=== PATIENT | female | born 1990 | race Caucasian/White ===

== ENCOUNTER 2016-12-10 20:06 | Observation (INO) | payer BC, OTHER ==
[~2016-12-10] VITALS: Ht 157.5 cm; Wt 46.9 kg
[~2016-12-10 20:06] MED LIST: AMIT10TA PO; CARV6.25 PO; CLON0.5T3 PO; CYCL5TAB PO; DIVA500T2 PO; IBUP800T19 PO; MAGN250T10 PO; PROM50TA4 PO; SERT100T PO; TIZA4TAB8 PO; TRAM50TA PO; ZONI100C PO
[2016-12-10] MEDS ORDERED: IV NORMAL SALINE 1,000ML 1,000 ML IV SCH (20:30)
[2016-12-10 20:42] LABS: BASO % 0 % (0-3); EOS % 1 % (0-3); HEMATOCRIT 44.4 % (36.0-47.0); HEMOGLOBIN 14.8 g/dL (12.0-15.5); LYMPH # 2.2 x10^3/uL (1.0-4.8); LYMPH % 41 % (24-48); MEAN CORPUSCULAR HEMOGLOBIN 29 pg (25-35); MEAN CORPUSCULAR HGB CONC 33 g/dL (31-37); MEAN CORPUSCULAR VOLUME 88 fL (79-100); MONO # 0.2 x10^3/uL (0.0-1.1); MONO % 4 % (0-9); NEUT # 2.9 x10^3uL (1.8-7.7); NEUT % 54 % (31-73); PLATELET COUNT 186 x10^3/uL (140-400); RED BLOOD COUNT 5.07 x10^6/uL (3.50-5.40); RED CELL DISTRIBUTION WIDTH 13.7 % (11.5-14.5); WHITE BLOOD COUNT 5.4 x10^3/uL (4.0-11.0)
[2016-12-10 20:49] LABS: ACETAMIN < 2.0 mcg/mL (10-30); ETHANOL < 10 mg/dL (0-10); SALIC 1.1 mg/dL (2.8-20.0)
[2016-12-10 20:50] LABS: ALBUMIN 4.5 g/dL (3.4-5.0); CALCIUM 8.8 mg/dL (8.5-10.1); DIRECT BILIRUBIN 0.1 mg/dL (0.0-0.2); GFR 66.5; MAGNESIUM 2.2 mg/dL (1.8-2.4); POTASSIUM 3.3 mmol/L (3.5-5.1); TOTAL BILIRUBIN 0.1 mg/dL (0.2-1.0); TOTAL PROTEIN 7.7 g/dL (6.4-8.2)
[2016-12-10 21:42] LABS: BILIRUBIN,URINE NEG (NEG); CLARITY,URINE CLEAR; COLOR,URINE STRAW; GLUCOSE,URINE NEG (NEG)
[2016-12-10 21:43] LABS: NITRITE,URINE NEG (NEG); UROBILINOGEN,URINE 0.2 mg/dL (0.2 mg/dL)
--- NOTE | 2016-12-10 21:44 | PHYS DOC ---
Past History Past Medical History: Depression Past Surgical History: No Surgical History Smoking: Non-smoker Alcohol Use: None Drug Use: None Adult General Chief Complaint Chief Complaint: OVERDOSE [facility] HPI Patient is a 26 year old female who presents with reported overdose. Patient was brought to the emergency department by her after he discovered that the patient had intentionally taken medication to hurt herself. The did not see her take the medication, however he states that she told him approximately 1 hour prior to arrival that she took about a third of a bottle of diphenhydramine that contains 600 capsules. He stated that approximately one third of the bottle was missing capsules, therefore they estimated that she may have taken 200 capsules total. The patient has been altered per the and has been lethargic and not responding appropriately to questions which she states is a change from her baseline. The patient does have history of depression and has had multiple episodes of suicidal ideation and suicide attempt in the past. She was recently admitted to inpatient psychiatric treatment 2-3 weeks ago at another facility. The patient is a poor historian currently. The patient denies any pain at this time. The patient does admit that she took medication to try to harm herself. Patient has had no vomiting, fevers, or other reported symptoms. Review of Systems Review of Systems Constitutional: Denies fever or chills [] Eyes: Denies change in visual acuity, redness, or eye pain [] HENT: Denies nasal congestion or sore throat [] Respiratory: Denies cough or shortness of breath [] Cardiovascular: No additional information not addressed in HPI [] GI: Denies abdominal pain, nausea, vomiting, bloody stools or diarrhea [] : Denies dysuria or hematuria [] Musculoskeletal: Denies back pain or joint pain [] Integument: Denies rash or skin lesions [] Neurologic: Denies headache, focal weakness or sensory changes [] Endocrine: Denies polyuria or polydipsia [] Current Medications Current Medications Current Medications Medications (Trade) Dose Ordered Sig/French Start Time Stop Time Status Last Admin Dose Admin Sodium Chloride 1,000 ml @ 1,000 mls/hr Q1H 12/10/16 20:30 12/10/16 21:29 DC 12/10/16 20:30 1,000 MLS/HR Allergies Allergies Allergies Coded Allergies Type Severity Reaction Last Updated Verified codeine Allergy Severe sob 02/13/15 Yes morphine Allergy Severe sob 02/13/15 Yes prochlorperazine Allergy Severe lock jaw 02/13/15 Yes diphenhydramine Allergy Intermediate jittery 02/13/15 Yes Physical Exam Physical Exam Constitutional: Well developed, well nourished, afebrile, staring away. [] HENT: Normocephalic, atraumatic, bilateral external ears normal, oropharynx moist, no oral exudates, nose normal. [] Eyes: PERRLA, EOMI, conjunctiva normal, no discharge. [] Neck: Normal range of motion, no tenderness, supple, no stridor. [] Cardiovascular: Tachycardia, regular rhythm, no murmur [] Lungs & Thorax: Bilateral breath sounds clear to auscultation [] Abdomen: Bowel sounds normal, soft, no tenderness, no masses, no pulsatile masses. [] Skin: Warm, dry, no erythema, no rash. [] Back: No tenderness, no CVA tenderness. [] Extremities: No tenderness, no cyanosis, no clubbing, ROM intact, no edema. [] Neurologic: Delayed verbal responses, normal motor function, normal sensory function, no focal deficits noted. [] Psychologic: Affect flat, judgement impaired, mood normal. [] Current Patient Data Vital Signs Vital Signs Date Time Temp Pulse Resp B/P (MAP) Pulse Ox O2 Delivery O2 Flow Rate FiO2 12/10/16 21:32 105 18 100 12/10/16 20:26 Room Air Lab Results Laboratory Tests Test 12/10/16 20:15 White Blood Count 5.4 x10^3/uL (4.0-11.0) Red Blood Count 5.07 x10^6/uL (3.50-5.40) Hemoglobin 14.8 g/dL (12.0-15.5) Hematocrit 44.4 % (36.0-47.0) Mean Corpuscular Volume 88 fL (79-100) Mean Corpuscular Hemoglobin 29 pg (25-35) Mean Corpuscular Hemoglobin Concent 33 g/dL (31-37) Red Cell Distribution Width 13.7 % (11.5-14.5) Platelet Count 186 x10^3/uL (140-400) Neutrophils (%) (Auto) 54 % (31-73) Lymphocytes (%) (Auto) 41 % (24-48) Monocytes (%) (Auto) 4 % (0-9) Eosinophils (%) (Auto) 1 % (0-3) Basophils (%) (Auto) 0 % (0-3) Neutrophils # (Auto) 2.9 x10^3uL (1.8-7.7) Lymphocytes # (Auto) 2.2 x10^3/uL (1.0-4.8) Monocytes # (Auto) 0.2 x10^3/uL (0.0-1.1) Eosinophils # (Auto) 0.0 x10^3/uL (0.0-0.7) Basophils # (Auto) 0.0 x10^3/uL (0.0-0.2) Sodium Level 142 mmol/L (136-145) Potassium Level 3.3 mmol/L (3.5-5.1) L Chloride Level 103 mmol/L (98-107) Carbon Dioxide Level 31 mmol/L (21-32) Anion Gap 8 (6-14) Blood Urea Nitrogen 6 mg/dL (7-20) L Creatinine 1.0 mg/dL (0.6-1.0) Estimated GFR (Cockcroft-Gault) 66.5 Glucose Level 90 mg/dL (70-99) Calcium Level 8.8 mg/dL (8.5-10.1) Magnesium Level 2.2 mg/dL (1.8-2.4) Total Bilirubin 0.1 mg/dL (0.2-1.0) L Direct Bilirubin 0.1 mg/dL (0.0-0.2) Aspartate Amino Transferase (AST) 17 U/L (15-37) Alanine Aminotransferase (ALT) 19 U/L (14-59) Alkaline Phosphatase 75 U/L (46-116) Total Protein 7.7 g/dL (6.4-8.2) Albumin 4.5 g/dL (3.4-5.0) Salicylates Level 1.1 mg/dL (2.8-20.0) L Salicylate Last Dose Date 12/10/16 Salicylate Last Dose Time 0800 Acetaminophen Level < 2.0 mcg/mL (10-30) L Acetaminophen Last Dose Date 12/10/16 Acetaminophen Last Dose Time 0800 Ethyl Alcohol Level < 10 mg/dL (0-10) EKG EKG Interpreted by me: Heart rate 114, sinus tachycardia, normal intervals, normal axis, no acute ST/T-wave abnormalities present [] Radiology/Procedures Radiology/Procedures Not performed [] Course & Med Decision Making Course & Med Decision Making Pertinent Labs and Imaging studies reviewed. (See chart for details) Poison control was contacted upon arrival to the emergency department. They recommended that the patient be treated with supportive care at this time and had continuous cardiac monitoring ensure no widening of the patient's QRS. EKGs were performed which showed a QRS of 84-86. The patient's lab work is otherwise unremarkable at this time. The patient was medically cleared for psychiatric evaluation. The patient underwent consultation with Dr. Scales through telepsychiatry in the emergency department. After her evaluation, she recommended that the patient be admitted to inpatient psychiatric care as she does not feel that the patient is stable to go home in her current state. This recommendation was confirmed at 0134. Several attempts were made to seek availability of an inpatient psychiatric bed. At time of sign out, patient is pending psychiatric placement. Care patient was signed out to Dr. Langston at 0600. Dragon Disclaimer Dragon Disclaimer This chart was dictated in whole or in part using Voice Recognition software in a busy, high-work load, and often noisy Emergency Department environment. It may contain unintended and wholly unrecognized errors or omissions. Departure Departure: Impression: Primary Impression: Intentional diphenhydramine overdose Additional Impression: Suicidal ideation Referrals: JUVENTINO MANCERA DO (PCP) Problem Qualifiers Primary Impression: Intentional diphenhydramine overdose Encounter type: initial encounter Qualified Codes: T45.0X2A - Poisoning by antiallergic and antiemetic drugs, intentional self-harm, initial encounter RANULFO MCCRACKEN MD Dec 10, 2016 21:44
[2016-12-10 21:53] LABS: BACTERIA,URINE 0 /HPF (0-FEW); RBC,URINE OCC /HPF (0-2); SQUAMOUS EPITHELIAL CELL,UR FEW /LPF; WBC,URINE OCC /HPF (0-4)
[2016-12-10 21:56] LABS: AMPHETAMINE/METHAMPHETAMINE NEG (NEG); BARBITURATES POS (NEG); BENZODIAZEPINES NEG (NEG); CANNABINOIDS NEG (NEG); COCAINE NEG (NEG); METHADONE NEG (NEG); OPIATES NEG (NEG); PHENCYCLIDINE NEG (NEG)
--- NOTE | 2016-12-11 05:30 | EKG ---
[address] [address] Test Date: 2016-12-10 Test Time: 21:01:10 Pat Name: ALBARO ROWELL Department: Room: Gender: F Medical Communication Specialist: : 1990 Requested By: RANULFO MCCRACKEN Order Number: [id number] Reading MD: Marty Rodrigues Measurements Intervals [place] Rate: 114 P: 4 CO: 104 QRS: 59 QRSD: 86 T: 26 QT: 350 QTc: 486 Interpretive Statements SINUS TACHYCARDIA NON-SPECIFIC ST/T CHANGES Electronically Signed On 12-11-2016 8:12:06 CDT by Marty Rodrigues
--- NOTE | 2016-12-11 06:26 | EKG ---
[address] [address] Test Date: 2016-12-10 Test Time: 22:59:30 Pat Name: ALBARO ROWELL Department: Room: Gender: F Ambulance Paramedic: BARBARA : 1990 Requested By: RANULFO MCCRACKEN Order Number: [id number] Reading MD: Marty Rodrigues Measurements Intervals [place] Rate: 100 P: 0 WA: 110 QRS: 56 QRSD: 84 T: 24 QT: 374 QTc: 486 Interpretive Statements SINUS RHYTHM NON SPECIFIC T ABNORMALITY PROLONGED QT NON SPECIFIC ST DEPRESSION Electronically Signed On 12-11-2016 8:12:25 CDT by Marty Rodrigues
[2016-12-11] MEDS ORDERED: ACETAMINOPHEN 325 MG TABLET PO ONE (06:30)
[2016-12-11] MEDS ORDERED: ONDANSETRON PF 4 MG/2 ML VIAL. IV PRN ×2 (08:45→12:00)
[2016-12-11] MEDS ORDERED: ACETAMINOPHEN 325 MG TABLET PO PRN ×2 (08:45→12:00)
[2016-12-11 10:05] VITALS: BP 128/93
[2016-12-11] MEDS ORDERED: BUSP15TA PO (11:38)
[2016-12-11] MEDS ORDERED: QUET25TA5 PO (11:39)
[2016-12-11] MEDS ORDERED: TRAM50TA PO (11:40)
[2016-12-11 15:00] VITALS: BP 137/93
[2016-12-11] MEDS ORDERED: traMADol 50 MG TABLET PO PRN (16:30)
[2016-12-11] MEDS ORDERED: BUTALB/APAP/CAFEIN 50/325/40MG TABLET. PO PRN ×2 (16:30→17:30)
[2016-12-11] MEDS ORDERED: QUEtiapine 25 MG TABLET. PO PRN (18:00)
[2016-12-11] MEDS ORDERED: QUEtiapine 25 MG TABLET. PO SCH (18:00)
[2016-12-11] MEDS: traMADol 50 MG TABLET PO PRN (18:01)
[2016-12-11] MEDS: BUTALB/APAP/CAFEIN 50/325/40MG TABLET. PO PRN (18:02)
[2016-12-11 18:58] VITALS: BP 130/91
[2016-12-11] MEDS: busPIRone 15 MG TABLET. PO SCH (20:27)
--- NOTE | 2016-12-11 22:47 | PDOC ---
Exam Miguel Angel Demential Exam: Miguel Angel Note: Please also refer to the separate dictated note~for this date of service dictated separately.~Patient seen individually. Discussed the patient with Nursing staff reviewed the chart.~Reviewed interim history and current functioning. Reviewed vital signs,~Labs/ Radiology~and current medications noted below. Continue current treatment with the changes noted in the dictated addendum note Assessment: Vital Signs: Vital Signs Date Time Temp Pulse Resp B/P (MAP) Pulse Ox O2 Delivery O2 Flow Rate FiO2 12/11/16 19:18 96 12/11/16 18:58 98.4 97 18 130/91 (104) Room Air Current Medications: Meds: Current Medications Sodium Chloride 1,000 ml @ 1,000 mls/hr Q1H IV Last administered on 12/10/16 20:30; Start 12/10/16 at 20:30; Stop 12/10/16 at 21:29; Status DC Acetaminophen (Tylenol) 650 mg 1X ONCE PO Last administered on 12/11/16 06:23 ; Start 12/11/16 at 06:30; Stop 12/11/16 at 06:31; Status DC Ondansetron HCl (Zofran) 4 mg PRN Q4HRS PRN IV NAUSEA/VOMITING; Start 12/11/16 at 08:45; Stop 12/11/16 at 11:56; Status DC Acetaminophen (Tylenol) 650 mg PRN Q4HRS PRN PO FEVER; Start 12/11/16 at 08:45 ; Stop 12/11/16 at 11:56; Status DC Acetaminophen (Tylenol) 650 mg PRN Q6HRS PRN PO Headaches, Temp > 101.5F; Start 12/11/16 at 12:00 Ondansetron HCl (Zofran) 4 mg PRN Q8HRS PRN IV NAUSEA/VOMITING; Start 12/11/16 at 12:00 Buspirone HCl (Buspar) 15 mg TID PO Last administered on 12/11/16 20:27; Start 12/11/16 at 21:00 Quetiapine Fumarate (SEROquel) 25 mg Q6HRS PO ; Start 12/11/16 at 18:00; Stop at 18:00; Status DC Sertraline HCl (Zoloft) 200 mg DAILY PO ; Start 12/12/16 at 09:00 Tramadol HCl (Ultram) 50 mg PRN Q6HRS PRN PO PAIN Last administered on 17:17; Start 12/11/16 at 16:30; Stop 12/11/16 at 17:26; Status DC Acetaminophen/ Butalbital/ Caffeine (Fioricet) 1 tab PRN Q6HRS PRN PO MIGRAINE HEADACHE Last administered on 12/11/16 17:16; Start 12/11/16 at 16:30; Stop at 17:22; Status DC Quetiapine Fumarate (SEROquel) 25 mg Q6HRS PRN PO ANXIETY Last administered on 12/11/16 17:16; Start 12/11/16 at 18:00 Acetaminophen/ Butalbital/ Caffeine (Fioricet) 2 tab PRN Q6HRS PRN PO MIGRAINE HEADACHE Last administered on 12/11/16 18:02; Start 12/11/16 at 17:30 Acetaminophen/ Butalbital/ Caffeine (Fioricet) 2 tab PRN Q6HRS PRN PO MIGRAINE HEADACHE; Start 12/11/16 at 17:30 Tramadol HCl (Ultram) 100 mg PRN Q6HRS PRN PO PAIN Last administered on 18:01; Start 12/11/16 at 17:30 Active Scripts Active Reported Tramadol Hcl (Tramadol HCl) 50 Mg Tablet 50 Mg PO PRN Q6HRS PRN Seroquel (Quetiapine Fumarate) 25 Mg Tablet 1 Tab PO Q6HRS Buspirone Hcl 15 Mg Tablet 1 Tab PO TID Zoloft (Sertraline Hcl) 100 Mg Tablet 200 Mg PO DAILY Promethazine Hcl 50 Mg Tablet 25 Mg PO Q6HRS PRN Diagnosis: Problems: (1) Major depressive disorder, recurrent episode (2) Suicidal ideation (3) Overdose (4) Intentional diphenhydramine overdose CORWIN POTTER MD Dec 11, 2016 22:47
--- NOTE | 2016-12-12 01:02 | HP ---
ADMIT DATE: 12/11/2016 HISTORY OF PRESENT ILLNESS: The patient is a 26-year-old female patient who was brought to the Emergency Room by her after he discovered that the patient had intentionally taken medication to hurt herself. Her did not see her take the medication; however, he states that she told him approximately one hour prior to the arrival that she took about a third of a bottle of diphenhydramine that contained 600 capsules, each capsule is 25 mg. He stated that approximately one-third of the bottle was missing and therefore, they estimated that she might have taken 200 capsules total. The patient has been altered as per her and has been lethargic, but not responding appropriately to questions, which he stated that had changed from baseline. The patient does have history of depression, has had multiple episodes of suicidal ideations, suicidal attempts in the past. She was recently admitted to Inpatient Psychiatric treatment facility about 2-3 weeks ago where she cut her wrists. She did admit that she took medication to try to harm herself. She denied any other complaint. She was extensively evaluated in the Emergency Room and apparently the Poison Control Center contacted upon arrival to the Emergency Room. They recommended that the patient be treated with supportive care for this time, should have continuous cardiac monitoring to ensure no widening of the patient's QRS complex. EKG was performed, which showed QR complex of 84-86 milliseconds. The patient's lab work was otherwise unremarkable. She was medically cleared for psychiatric evaluation. The patient underwent consultation with Dr. Scales through the tele psychiatry in the Emergency Department and she recommended that the patient be admitted to inpatient psychiatric care. She does not feel that the patient is stable to go home in her current state. This recommendation was confirmed. Apparently several attempts were made to seek availability of an Inpatient Psychiatric bed at that time and eventually she was admitted to [address] [place] [address], awaiting placement in an Inpatient Psychiatric Unit. We have already consulted Dr. Sewell to evaluate her. The patient stated that she has been addicted to [place]. She has been taking up to 35 tablets a day for almost 3 years. She has been going to different doctor ____ and managed to get hold of this medication. She took it constantly for almost 3 years and she has been clear for almost a year now. She is back to work. 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 PAST MEDICAL HISTORY: Significant for a stroke diagnosed when she was 18 years and 22 years old. 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 She has had seizures during childhood that she outgrew. She also has depression and has been taking buspirone 15 mg 3 times a day, promethazine 25 mg every 6 hours, quetiapine fumarate 25 mg every 6 hours, sertraline 200 mg daily. She is on tramadol 50 mg p.r.n. every 6 hours. ALLERGIES: SHE IS ALLERGIC TO CODEINE, DIPHENHYDRAMINE, MORPHINE AND PROCHLORPERAZINE. PAST SURGICAL HISTORY: Significant for Diogenes fundoplication. FAMILY HISTORY: She has one brother who is younger and healthy. Her father is alive at age of 60 and has hypertension. Mother is alive at the age of 54 and healthy. SOCIAL HISTORY: She is , has no children. She does not smoke, drink alcohol or use any recreational drugs, except obviously the [place] that she has been taking for more than a year. Apparently, one of her [id number] gave her the pain medication as she was having pain and that apparently what has upset her and pushed her to attempt to commit suicide according to her. She currently works as nurse in an urgent care in ____. When I saw her, she was definitely more awake, alert, responding appropriately. Denied any suicidal ideation. She stated that she is comfortable. PHYSICAL EXAMINATION: GENERAL: When I examined her, she was somewhat pale, but not jaundiced. She has no thyromegaly. No jugular venous distention. No limb edema. VITAL SIGNS: Her heart rate was 86, blood pressure 128/93, temperature was 98.9, respiratory rate was 16 and oxygen saturation was 91%. HEAD, EYES, EARS, NOSE AND THROAT: Showed normocephalic, atraumatic. Her pupils are extremely dilated. NECK: Supple. HEART: Showed normal first and second heart sounds with no gallop, rub or murmur. CHEST: Clear to auscultation. No crepitation or rhonchi. ABDOMEN: Distended, soft, nontender. No guarding or rigidity. No organomegaly. All hernial orifices intact. Bowel sounds normal. NEUROLOGIC: She is awake, alert, responding appropriately. Cranial nerves intact. EXTREMITIES: She moves extremities without difficulty, ambulates without assistance or assistive devices. LABORATORY DATA: Showed a white cell count of 5400, hemoglobin 14.8, hematocrit 44.4, MCV 88 and platelet count of 186,000. Her chemistry showed a serum sodium 142, potassium 3.3, chloride 103, bicarbonate 31, anion gap of 8, BUN 6, creatinine 1, estimated GFR was 66 mL per minute. Her glucose was 90, calcium was 8.8, magnesium 2.2. Total bilirubin, AST, ALT, alkaline phosphatase were normal. Total protein was 7.7, albumin 4.5. Urinalysis showed the urine was straw colored, clear with a base of 6, specific gravity of 1.020. The urine was negative for protein, glucose, ketones, blood, nitrite and leukocyte esterase. There are no rbc's, no wbc's, and very few bacteria. Her toxic screen was negative for opiates, methadone as well as for barbiturates; negative for phencyclidine, amphetamine, methamphetamine; negative for cocaine, cannabinoids, and ethyl alcohol. ASSESSMENT AND PLAN: In summary, this is a 26-year-old who was admitted with intentional diphenhydramine overdose and suicidal ideation. We will consult Dr. Sewell for evaluation and treatment. We will consult the mattress spring encaser to arrange for the patient to be placed in an inpatient psychiatric unit. STEPHANIE ROSARIO MD DR: ANA/manjinder JOB#: [id number] / [id number]
--- NOTE | 2016-12-12 01:36 | CONS ---
DATE OF CONSULTATION: 12/11/2016 IDENTIFYING DATA: The patient is a 26-year-old female seen in room [address] [facility] for a psychiatric consult the evening of 12/11/[address] Albright after the patient was admitted status post overdose at home. The patient was seen individually evening of 12/11/2016. Discussed with nursing staff reviewed the chart. CHIEF COMPLAINT: "I took an overdose of Benadryl. I took 200 capsule of 25 mg each. 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 My saw me and saw the capsules and my mother came to the house as well and after that I do not remember anything." HISTORY OF PRESENT ILLNESS: Reportedly, the patient was brought to the Emergency Department by her after he discovered that the patient had intentionally taken the overdose. Her did not see her take the medication; however, he states that she told him approximately 1 hour prior to arrival that she took about a third of a bottle of diphenhydramine that contains 600 capsules. According to the , the patient had altered mental status was lethargic, not responding appropriately to questions, which is a change from baseline. She does have a history of depression, multiple episodes of suicidal ideation, suicide attempt in the past. She was recently an inpatient at [facility] two to three weeks ago. She admits she took the overdose because of family problems and stress at work. 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 She admits to being depressed. No psychotic symptoms or homicidal ideation. No clear history of bipolar disorder. PAST PSYCHIATRIC HISTORY: As noted above. The patient was evaluated by Dr. Chiu through tele psychiatry in the Emergency Department and recommended for inpatient psychiatric care. No beds were available and nearby facility and she was admitted to medical surgical floor. She is otherwise healthy. The patient has been seen Dr. Sue Trevino at the [facility] from a psychiatric standpoint and has been on BuSpar 15 mg 3 times a day, Seroquel 25 mg p.r.n., Zoloft 200 mg a day. ALLERGIES: CODEINE, MORPHINE, PROCHLORPERAZINE, DIPHENHYDRAMINE. MEDICAL HISTORY: EKG showed heart rate 114 sinus tachycardia. FAMILY HISTORY: Noncontributory. 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 She has a past history of street drug abuse and states she had been sober for some time till she relapsed in 09/2016 after being clean for 10 months and has had a relapse on "[place]" and alcohol. MENTAL STATUS EXAMINATION: The patient was seen individually evening of 12/11/2016. She is reasonably oriented remembered me from her prior visit. Speech is coherent. She minimizes suicidal ideation. Mood is somewhat dysphoric. She denied being depressed, denied homicidal ideation, no psychotic symptoms. Intellect average insight somewhat limited given the circumstances prompting admission. Attention span short. Language function intact. LABORATORY DATA: Reviewed. VITAL SIGNS: Temperature 98.4, pulse 97, BP 130/91. IMPRESSION: Major depressive disorder recurrent history of substance abuse as noted above, status post suicide attempt. PLAN: The patient remains on one-on-one status. Staffs were trying to obtain inpatient psychiatric treatment for the patient and she is resistive to doing this stating she will go for outpatient treatment. Given her significant suicide attempt it is best if she be treated inpatient and stabilized before returning back to outpatient treatment. Dr. Albright, thank you for the opportunity to participate in your patient's care. We will follow with you. CORWIN POTTER MD DR: DIPIKA/manjinder JOB#: [id number] / [id number]
--- NOTE | 2016-12-12 03:40 | ACF ---
Admission Criteria Forms DRUG INGESTION OR OVERDOSE Clinical Indications for Admission to Inpatient Care ( Place 'X' for any and all applicable criteria): Admission is indicated for severe toxicity as indicated by ANY ONE of the following(1)(2)(3)(4)(5)(6): [x]I. Inpatient admission required rather than observation care (Also use Drug Ingestion or Overdose: Observation Care guideline as appropriate) because of ANY ONE of the following: [ ]a) Altered mental status that is severe or persistent [ ]b) Clinical finding (eg, metabolic acidosis, hypoglycemia, bradycardia) that is severe or persistent [ ]c) Toxic drug level that is persistent [x]d) Psychiatric risk status not acceptable for outpatient management [ ]e) Continuous intravenous infusion of anticoagulation, platelet inhibitor, vasoactive, or antiarrhythmic medication (15)(16) [ ]f) Other condition, treatment or monitoring requiring inpatient admission [ ]II. Respiratory abnormalities [ ]III. Specific finding indicating severe and likely prolonged drug toxicity [ ]IV. Hemodynamic instability [ ]V. Dangerous arrhythmia [ ]. Hypertension requiring inpatient treatment Extended stay beyond goal length of stay may be needed for (4): [ ]a) Neurologic or respiratory compromise [ ]b) Hemodynamic instability [ ]c) Persistent toxic drug levels (25) [ ]d) Severe drug toxicities or complications [ ]e) Ongoing antidote treatment (eg, acetaminophen overdose)(5) [ ]f) Older patients(65 years or older) The original [employer] content created by [employer] has been revised. The portions of the content which have been revised are identified through the use of italic text or in bold, and [facility] has neither reviewed nor approved the modified material. All other unmodified content is copyright [employer]. Please see references footnoted in the original [employer] edition 2016 Admission Criteria Met?: Yes YOVANI NÚÑEZ Dec 12, 2016 03:40
[2016-12-12 05:10] VITALS: BP 125/86
[2016-12-12 05:56] LABS: BASO % 1 % (0-3); EOS # 0.1 x10^3/uL (0.0-0.7); EOS % 3 % (0-3); HEMATOCRIT 41.4 % (36.0-47.0); HEMOGLOBIN 13.8 g/dL (12.0-15.5); LYMPH # 1.6 x10^3/uL (1.0-4.8); LYMPH % 36 % (24-48); MEAN CORPUSCULAR HEMOGLOBIN 30 pg (25-35); MEAN CORPUSCULAR HGB CONC 34 g/dL (31-37); MEAN CORPUSCULAR VOLUME 88 fL (79-100); MONO # 0.3 x10^3/uL (0.0-1.1); MONO % 7 % (0-9); NEUT # 2.4 x10^3uL (1.8-7.7); NEUT % 53 % (31-73); PLATELET COUNT 157 x10^3/uL (140-400); RED BLOOD COUNT 4.69 x10^6/uL (3.50-5.40); RED CELL DISTRIBUTION WIDTH 13.4 % (11.5-14.5); WHITE BLOOD COUNT 4.5 x10^3/uL (4.0-11.0)
[2016-12-12 06:02] LABS: CALCIUM 8.4 mg/dL (8.5-10.1); GFR 66.5; POTASSIUM 3.6 mmol/L (3.5-5.1)
[2016-12-12] MEDS ORDERED: SERTRALINE 100 MG TABLET. ONE (07:12)
[2016-12-12] MEDS: busPIRone 15 MG TABLET. PO SCH (07:19)
[2016-12-12] MEDS: traMADol 50 MG TABLET PO PRN (07:19)
[2016-12-12] MEDS: BUTALB/APAP/CAFEIN 50/325/40MG TABLET. PO PRN (07:20)
[2016-12-12] MEDS ORDERED: SERTRALINE 100 MG TABLET. PO SCH (09:00)
--- NOTE | 2016-12-12 20:18 | DS ---
DATE OF DISCHARGE: 12/12/2016 HOSPITAL COURSE: The patient is a 26-year-old female patient who was admitted with post-suicide attempt. She took 200 tablets of Benadryl, each about 25 mg ____. She was evaluated in the Emergency Room and the poison control center was contacted and the patient was admitted to be observed on telemetry with one-on-one sitter. A psychiatrist was consulted and he recommended admission to an inpatient psychiatric treatment; however, the patient is well known at the [facility] and our dependency case manager contacted her doctor there and they recommended that she can be [facility] as they know her very well and they will take her to the [facility]. Her has taken her to [facility] to make sure that she arrived there. PHYSICAL EXAMINATION GENERAL: This morning when she left, she was well and was clearly in no apparent respiratory distress. No pallor, jaundice, cyanosis, or thyromegaly. No jugular distension, no limb edema. VITAL SIGNS: Her heart rate was 71, blood pressure 125/86, temperature was 97.9, respiratory rate was 16, and oxygen saturation was 98%. The clinical examination is unremarkable, has not really changed. LABORATORY DATA: Showed a white cell count 4500, hemoglobin 13.8, hematocrit 41, MCV 88 and platelet count of 157,000. Her chemistry showed a serum sodium 142, potassium 3.6, chloride 106, bicarbonate 28, anion gap of 8, BUN 14, creatinine 1, estimated GFR was 66 mL per minute. Her glucose was 91 and calcium was 8.5. DISCHARGE MEDICATIONS: She was discharged to continue on her sertraline 200 mg once a day, buspirone 15 mg 3 times a day, quetiapine fumarate 25 mg every 6 hours, tramadol 100 mg every 6 hours, and Fioricet 2 tablets every 6 hours. FINAL DISCHARGE DIAGNOSES: Major depressive disorder with recurrent history of substance abuse as noted, status post suicidal attempt. STEPHANIE ROSARIO MD DR: ANA/manjinder JOB#: [id number] / [id number]
== END 2016-12-12 09:52 | disposition home or self-care (01) ==
LOC: ER 20:06 → 1 SOUTH 12-11 08:27
PROVIDERS: ADMIT Internal Medicine; ATTEND Internal Medicine
DX: T45.0X2A Poisoning by antiallergic and antiemetic drugs, intentional self-harm, initial encounter (principal); F33.9 Major depressive disorder, recurrent, unspecified; G11.9 Hereditary ataxia, unspecified; Y92.89 Other specified places as the place of occurrence of the external cause; Z63.9 Problem related to primary support group, unspecified; Z86.73 Personal history of transient ischemic attack (TIA), and cerebral infarction without residual deficits; Z79.899 Other long term (current) drug therapy; Z82.49 Family history of ischemic heart disease and other diseases of the circulatory system
CPT/HCPCS: 36415; 80048; 80076; 80307; 81001; 83735; 85027; 93005; 96360; 96361; 99285; G0378; G0480; J7030; G0379; G0479

== ENCOUNTER 2017-08-14 06:23 | Emergency (ER) | payer BC, OTHER ==
[~2017-08-14] VITALS: Ht 154.9 cm; Wt 46.3 kg
[~2017-08-14 06:23] MED LIST changes: +BUSP15TA PO; +QUET25TA5 PO
[2017-08-14 06:50] VITALS: BP 145/95
[2017-08-14 07:29] LABS: BACTERIA,URINE MOD /HPF (0-FEW); BILIRUBIN,URINE NEG (NEG); CLARITY,URINE HAZY; COLOR,URINE YELLOW; GLUCOSE,URINE NEG (NEG); NITRITE,URINE NEG (NEG); RBC,URINE 0 /HPF (0-2); SQUAMOUS EPITHELIAL CELL,UR MANY /LPF; UROBILINOGEN,URINE 0.2 mg/dL (0.2 mg/dL)
[2017-08-14 07:34] LABS: AMPHETAMINE/METHAMPHETAMINE NEG (NEG); BARBITURATES NEG (NEG); BENZODIAZEPINES NEG (NEG); CANNABINOIDS NEG (NEG); COCAINE NEG (NEG); METHADONE NEG (NEG); OPIATES POS (NEG); PHENCYCLIDINE NEG (NEG)
== END 2017-08-14 06:58 | disposition home or self-care (01) ==
LOC: ER 06:23
DX: F11.10 Opioid abuse, uncomplicated (principal); N39.0 Urinary tract infection, site not specified; F32.9 Major depressive disorder, single episode, unspecified; Z88.5 Allergy status to narcotic agent; Z88.8 Allergy status to other drugs, medicaments and biological substances
CPT/HCPCS: 36415; 80307; 81001; 81025; 87086; 99284; G0479